=== PATIENT | female | born 1990 | race African-American/Black ===

== ENCOUNTER 2019-07-11 00:06 | Emergency (ER) | payer SELFPAY | END 2019-07-11 01:28 | disposition home or self-care (01) | LOC: ERS 00:06 | DX: F41.9 Anxiety disorder, unspecified (principal) | CPT/HCPCS: 99281 ==

== ENCOUNTER 2019-07-18 09:58 | Emergency (ER) | payer SELFPAY ==
[2019-07-18] MEDS ORDERED: Acetaminophen 500 MG TAB ONE (10:27)
[2019-07-18] MEDS ORDERED: Ibuprofen 200 MG TAB ONE ×2 (10:27→10:37)
[2019-07-18] MEDS ORDERED: Ondansetron ODT 8 MG TAB ONE (10:27)
[2019-07-18 10:38] LABS: Bilirubin Negative (Negative); Blood, Urine Negative (Negative); Clarity Clear (Clear); Glucose, Urine (Dipstick) Normal (Negative); Leukocyte Negative Leu/uL (Negative); Nitrite Negative (Negative); Protein, Urine (Dipstick) Negative (Neg-Trace); Urobilinogen Normal mg/dL (Less than 2)
[2019-07-18 10:39] LABS: Pregnancy Test - Urine (BHCG) Negative (Negative); Pregu Control Background? CLEAR/WHITE (CLR/WHITE); Pregu Control Bar Appear? YES (CONTROL BAR); Specific Gravity 1.006 (1.002-1.036)
== END 2019-07-18 11:28 | disposition home or self-care (01) ==
LOC: ERS 09:58
DX: R10.30 Lower abdominal pain, unspecified (principal); I10 Essential (primary) hypertension; F41.9 Anxiety disorder, unspecified
CPT/HCPCS: 81003; 81025; 99284

== ENCOUNTER 2019-08-04 03:05 | Emergency (ER) | payer MEDICARE, SELFPAY ==
[2019-08-04] MEDS ORDERED: Ondansetron ODT 8 MG TAB ONE (03:34)
[2019-08-04] MEDS ORDERED: Ibuprofen 800 MG TAB ONE (03:34)
== END 2019-08-04 03:45 | disposition home or self-care (01) ==
LOC: ERS 03:05
DX: R51 Headache (principal); R11.0 Nausea; F41.9 Anxiety disorder, unspecified; I10 Essential (primary) hypertension
CPT/HCPCS: 99284; Q0162